=== PATIENT | male | born 1950 | race Caucasian/White ===

== ENCOUNTER 2021-06-05 07:00 | Inpatient (IN) ==
[~2021-06-05 07:00] MED LIST: DEXTROSE 10% 250 ML BAG IV PRN
[2021-06-05] MEDS: INSULIN REGULAR 100 UNIT/ML SUBCUT SCH ×4 (08:00→22:28)
[2021-06-05] MEDS: CHLORHEXIDINE 0.12% ORAL RINSE 60 ML BOTTLE SWISH/SPIT SCH ×2 (09:00→21:45)
[2021-06-05 10:58] LABS: Basophils # 0.1 10*3/uL (0.0-0.2); Basophils % 0.7 % (0.0-0.8); Eosinophils # 0.3 10*3/uL (0.0-0.87); Eosinophils % 3.8 % (0.00-10.9); Hematocrit 45.5 VOL% (42.0-52.0); Hemoglobin 14.7 GM/DL (14.0-18.0); Immature Granulocytes % 0.7 %; Immature Granulocytes Absolute 0.06 #; Lymphocytes # 1.7 10*3/uL (1.4-4.0); Mean Corpuscular HGB Conc 32.3 GM/DL (32-36); Mean Corpuscular Volume 93.2 FL (87-102); Monocytes % 9.1 % (1.7-12.7); Neutrophils % 65.7 % (38.7-73.9); Platelet Count 167 T/CUMM (130-400); Red Blood Count 4.88 MC/CUMM (3.8-5.5); Red Cell Distribution Width 12.7 % (9.3-17.3); White Blood Count 8.4 T/CUMM (4-12)
[2021-06-05 11:32] LABS: Albumin 3.5 G/DL (3.4-5.0); Bilirubin,Total 0.6 MG/DL (0.20-1.00); Calcium 8.8 MG/DL (8.5-10.1); Osmolality,Calculated 284.7 MOS/KG (273-304); Potassium 4.4 MMOL/L (3.5-5.1); Total Protein 7.5 G/DL (6.4-8.2)
[2021-06-05] MEDS ORDERED: GLUCAGON 1 MG VIAL IM PRN (11:40)
[2021-06-05] MEDS ORDERED: NITROGLYCERIN SL 0.4 MG TABLET SL PRN (11:53)
[2021-06-05] MEDS ORDERED: MORPHINE 2 MG/1 ML SYRINGE IV PRN (11:53)
[2021-06-05] MEDS ORDERED: CLORAZEPATE 3.75 MG TABLET PO PRN (11:53)
[2021-06-05] MEDS ORDERED: LACTATED RINGERS 1,000 ML IV SCH (12:30)
[2021-06-05] MEDS: SODIUM CHLORIDE 0.9% 1,000 ML IV SCH (13:11)
[2021-06-05 13:50] LABS: Arterial Base Excess iSTAT 2 MMOL/L (-2.5-2.5); Arterial Bicarbonate iSTAT 26.5 MMOL/L (20-26); Arterial O2 Saturation iSTAT 98 % (95-100); Arterial PCO2 iSTAT 40 MM HG (35-48); Arterial PO2 iSTAT 101 MM HG (80-95); Arterial Total CO2 iSTAT 28 MMO/L (23-27); Arterial pH iSTAT 7.433 (7.35-7.45)
[2021-06-05] MEDS: CHLORHEXIDINE 4% SOLN 118 ML BOTTLE TOP SCH ×2 (15:40→21:55)
[2021-06-06] MEDS: CHLORHEXIDINE 4% SOLN 118 ML BOTTLE TOP SCH (04:01)
[2021-06-06] MEDS ORDERED: PAPAVERINE 60 MG/2 ML VIAL ONE (04:18)
[2021-06-06] MEDS ORDERED: VANCOMYCIN 500 MG VIAL ONE (04:19)
[2021-06-06] MEDS ORDERED: VANCOMYCIN 1,000 MG VIAL ONE (04:19)
[2021-06-06] MEDS ORDERED: CEFUROXIME INJ 1,500 MG in SODIUM CHLORIDE 0.9% 100 ML IV ONE (05:00)
[2021-06-06] MEDS ORDERED: FAMOTIDINE 20 MG TABLET PO ONE (05:30)
[2021-06-06] MEDS ORDERED: DIAZEPAM 5 MG TABLET PO ONE (05:30)
[2021-06-06] MEDS ORDERED: NITROGLYCERIN DRIP 50 MG/250 ML BOTTLE IV ONE (05:38)
[2021-06-06] MEDS ORDERED: PHENYLEPHRINE DRIP 20 MG/250 ML PREMIX IV ONE (05:38)
[2021-06-06] MEDS ORDERED: SODIUM CHLORIDE 0.9% 250 ML IV ONE (05:53)
[2021-06-06] MEDS ORDERED: MIDAZOLAM 10 MG/2 ML VIAL ONE ×3 (05:53)
[2021-06-06] MEDS ORDERED: CALCIUM CHLORIDE 1,000 MG/10 ML VIAL IV ONE (05:53)
[2021-06-06] MEDS ORDERED: ePHEDrine 50 MG/ML VIAL ONE (05:53)
[2021-06-06] MEDS ORDERED: VECURONIUM 10 MG VIAL IV ONE (05:53)
[2021-06-06] MEDS ORDERED: MINERAL OIL/PETROLATUM OPH OINT 3.5 GM TUBE ONE (05:53)
[2021-06-06] MEDS ORDERED: SEVOFLURANE 1 UNIT/15 MINUTE INH ONE (05:53)
[2021-06-06] MEDS ORDERED: AMINOCAPROIC ACID 5,000 MG/20 ML VIAL ONE (05:53)
[2021-06-06] MEDS ORDERED: HEPARIN/NACL 0.9% 2 UNITS/ML 1,000 UNIT/500 ML BAG IV ONE (05:53)
[2021-06-06] MEDS ORDERED: SUFentanil 250 MCG/5 ML AMP ONE (05:53)
[2021-06-06] MEDS ORDERED: ETOMIDATE 40 MG/20 ML VIAL IV ONE (05:53)
[2021-06-06] MEDS ORDERED: LACTATED RINGERS 1,000 ML IV ONE (05:53)
[2021-06-06] MEDS ORDERED: SODIUM CHLORIDE 0.9% 1,000 ML IV ONE (05:53)
[2021-06-06] MEDS ORDERED: LIDOCAINE 2% 5 ML VIAL ONE ×2 (05:56→10:33)
[2021-06-06 07:31] LABS: ABG Base Excess -0.2 MMOL/L (-2.5-2.5); ABG HCO3 24.3 MMOL/L (20-26); ABG Oxygen Saturation 99.7 % (95-100); ABG PCO2 45.3 MM HG (35-48); ABG PH 7.361 (7.35-7.45); ABG TCO2 22.3 MMOL/L (23-27); Glucose Heart Surgery 196 MG/DL (74-106); Hematocrit Heart Surgery 42.7 PERCENT (42-52); Hemoglobin Heart Surgery 13.9 G/DL (14.0-18.0); Ionized Calcium Arterial 1.19 MMOL/L (1.21-1.46); PCO2 Patient Temp Arterial 45.3 MMHG; PH Patient Temp Arterial 7.361; Patient Temperature 37 CELCIUS; Potassium Heart/CVR 4.5 MMOL/L (3.5-5.1); Sodium Heart/CVR 140 MMOL/L (135-145)
[2021-06-06 07:40] LABS: RBC,Urine 2 /HPF (0-4); Urine Appearance Clear (Clear); Urine Color Yellow (Yellow); Urine Specific Gravity 1.025 (1.001-1.035)
[2021-06-06 07:41] LABS: Bilirubin,Urine Negative (Negative); Blood, Urine Trace mg/dL (Negative); Glucose,Urine (UA) Negative (Negative); Ketones,Urine Negative (Negative); Nitrite,Urine Negative (Negative); Protein,Urine Negative (Negative); Urine Urobilinogen 0.2 eU/dL (<2.0)
[2021-06-06] MEDS ORDERED: PHENYLEPHRINE DRIP 40 MG/250 ML PREMIX IV ONE (07:59)
[2021-06-06] MEDS ORDERED: POTASSIUM CHLORIDE RIDER 20 MEQ/100 ML PREMIX IV ONE (07:59)
[2021-06-06] MEDS ORDERED: NITROPRUSSIDE 50 MG/2 ML VIAL ONE (07:59)
[2021-06-06 09:08] LABS: Hemoglobin Heart Surgery 10.9 G/DL (14.0-18.0); PCO2 Patient Temp Venous 40.8 MM HG; PH Patient Temp Venous 7.422; PO2 Patient Temp Venous 35.3 MM HG; VBG Base Excess 2.1 MEQ/L (0-4); VBG HCO3 25.9 MEQ/L (24-28); VBG Oxygen Saturation 77.2 %; VBG PCO2 47.2 MMHG (41-51); VBG PH 7.379; VBG PO2 43.4 MMHG (17-40); VBG Total CO2 25.2 MMOL/L
[2021-06-06 09:09] LABS: Hematocrit Heart Surgery 33.7 PERCENT (42-52); Potassium Heart/CVR 6.1 MMOL/L (3.5-5.1)
[2021-06-06] MEDS ORDERED: AMIODARONE INJ 450 MG in DEXTROSE 5% 241 ML IV SCH (09:30)
[2021-06-06 09:36] LABS: Hemoglobin Heart Surgery 12.3 G/DL (14.0-18.0); PCO2 Patient Temp Venous 36.4 MM HG; PH Patient Temp Venous 7.447; PO2 Patient Temp Venous 33.8 MM HG; VBG Base Excess 0.5 MEQ/L (0-4); VBG HCO3 25.3 MEQ/L (24-28); VBG Oxygen Saturation 78.6 %; VBG PCO2 41.5 MMHG (41-51); VBG PH 7.403; VBG PO2 41.8 MMHG (17-40); VBG Total CO2 26.6 MMOL/L
[2021-06-06 09:37] LABS: Potassium Heart/CVR 6.1 MMOL/L (3.5-5.1)
[2021-06-06] MEDS ORDERED: THROMBIN TOPICAL (RECOMBINANT) 5,000 UNIT VIAL TOP ONE (10:09)
[2021-06-06 10:28] LABS: ABG Base Excess -1.9 MMOL/L (-2.5-2.5); ABG Oxygen Saturation 98.5 % (95-100); ABG PH 7.378 (7.35-7.45); ABG PO2 161.1 MM HG (80-95); ABG TCO2 24.3 MMOL/L (23-27); Glucose Heart Surgery 297 MG/DL (74-106); Hemoglobin Heart Surgery 12.4 G/DL (14.0-18.0); Ionized Calcium Arterial 1.11 MMOL/L (1.21-1.46); PH Patient Temp Arterial 7.378; PO2 Patient Temp Arterial 161.1 MM HG; Patient Temperature 37 CELCIUS; Potassium Heart/CVR 4.8 MMOL/L (3.5-5.1); Sodium Heart/CVR 131 MMOL/L (135-145)
[2021-06-06] MEDS ORDERED: MANNITOL 100 GM/500 ML BAG IV ONE (10:33)
[2021-06-06] MEDS ORDERED: PROTAMINE SULFATE 250 MG/25 ML VIAL IV ONE (10:33)
[2021-06-06] MEDS ORDERED: DEXTROSE 5% KCL 20 MEQ 20 MEQ/1,000 ML BAG IV ONE (10:33)
[2021-06-06] MEDS ORDERED: methylPREDNISolone SOD SUC 1,000 MG/8 ML VIAL ONE (10:33)
[2021-06-06] MEDS ORDERED: MAGNESIUM SULFATE 5 GM/10 ML VIAL IV ONE (10:33)
[2021-06-06] MEDS ORDERED: ALBUMIN 25% 25 GM/100 ML VIAL IV ONE (10:33)
[2021-06-06] MEDS ORDERED: FUROSEMIDE 20 MG/2 ML VIAL ONE (10:34)
[2021-06-06] MEDS ORDERED: PROTAMINE SULFATE 50 MG/5 ML VIAL IV ONE (10:34)
[2021-06-06] MEDS ORDERED: HEPARIN 10,000 UNIT/10 ML VIAL ONE (10:34)
[2021-06-06] MEDS ORDERED: SODIUM BICARBONATE 50 MEQ/50 ML VIAL IV ONE (10:34)
[2021-06-06] MEDS ORDERED: AMIODARONE 450 MG/9 ML VIAL IV ONE (11:06)
[2021-06-06] MEDS: LACTATED RINGERS 1,000 ML IV PRN ×5 (11:40→20:11)
[2021-06-06] MEDS ORDERED: POTASSIUM CHLORIDE RIDER 10 MEQ/100 ML PREMIX IV PRN (12:01)
[2021-06-06] MEDS ORDERED: NITROPRUSSIDE 100 MG in DEXTROSE 5% 250 ML IV PRN (12:01)
[2021-06-06] MEDS ORDERED: ACETAMINOPHEN 650 MG SUPP RECTAL PRN (12:01)
[2021-06-06] MEDS ORDERED: SODIUM CHLORIDE 0.45% 1,000 ML IV SCH (12:01)
[2021-06-06] MEDS ORDERED: MIDAZOLAM 10 MG/2 ML VIAL IV PRN (12:01)
[2021-06-06] MEDS ORDERED: ONDANSETRON 4 MG/2 ML VIAL IV PRN (12:01)
[2021-06-06] MEDS ORDERED: MAGNESIUM SULF RIDER 4 GM/100 ML PREMIX IV PRN (12:01)
[2021-06-06] MEDS ORDERED: MIDAZOLAM 2 MG/2 ML VIAL IV PRN (12:01)
[2021-06-06] MEDS ORDERED: INSULIN REGULAR 100 UNIT/ML IV PRN (12:01)
[2021-06-06] MEDS ORDERED: CALCIUM CHLORIDE 1,000 MG/10 ML SYRINGE IV PRN (12:01)
[2021-06-06] MEDS ORDERED: INSULIN REGULAR 100 UNIT/ML IV ONE (12:01)
[2021-06-06] MEDS ORDERED: INSULIN REGULAR DRIP 100 ML IV SCH (12:01)
[2021-06-06] MEDS ORDERED: MAGNESIUM SULF RIDER 2 GM/50 ML PREMIX IV PRN (12:01)
[2021-06-06] MEDS ORDERED: PHENYLEPHRINE DRIP 40 MG/250 ML PREMIX IV PRN (12:01)
[2021-06-06] MEDS ORDERED: LACTATED RINGERS 250 ML IV PRN (12:01)
[2021-06-06] MEDS ORDERED: VECURONIUM 10 MG VIAL IV PRN ×2 (12:01)
[2021-06-06] MEDS ORDERED: DEXTROSE 10% 250 ML BAG IV PRN ×2 (12:01)
[2021-06-06 12:18] LABS: ABG Base Excess -1.5 MMOL/L (-2.5-2.5); ABG HCO3 23.2 MMOL/L (20-26); ABG Oxygen Saturation 98.6 % (95-100); ABG PH 7.318 (7.35-7.45); ABG TCO2 22.5 MMOL/L (23-27); Glucose Heart Surgery 243 MG/DL (74-106); Potassium Heart/CVR 3.9 MMOL/L (3.5-5.1)
[2021-06-06] MEDS: SODIUM CHLORIDE 0.9% 1,000 ML IV SCH (12:36)
[2021-06-06] MEDS: SODIUM CHLORIDE 0.45% 1,000 ML IV SCH (12:37)
[2021-06-06] MEDS: POTASSIUM CHLORIDE RIDER 20 MEQ/100 ML PREMIX IV PRN ×5 (12:38→22:17)
[2021-06-06 12:39] LABS: Albumin 2.9 G/DL (3.4-5.0); Bilirubin,Total 0.8 MG/DL (0.20-1.00); Calcium 8.2 MG/DL (8.5-10.1); Osmolality,Calculated 289.4 MOS/KG (273-304); Potassium 3.4 MMOL/L (3.5-5.1); Total Protein 5.8 G/DL (6.4-8.2)
[2021-06-06 12:44] LABS: CKMB % 4.6 %
[2021-06-06 12:46] LABS: Basophils % 0.3 % (0.0-0.8); Eosinophils # 0.1 10*3/uL (0.0-0.87); Eosinophils % 0.8 % (0.00-10.9); Hematocrit 37.8 VOL% (42.0-52.0); Hemoglobin 12.1 GM/DL (14.0-18.0); Immature Granulocytes % 1.1 %; Lymphocytes # 0.9 10*3/uL (1.4-4.0); Lymphocytes % 9.2 % (21.2-54.2); Mean Corpuscular Volume 94.7 FL (87-102); Mean Platelet Volume 10.3 FL (9.6-12.0); Monocytes % 7.1 % (1.7-12.7); Neutrophils % 81.5 % (38.7-73.9); Platelet Count 132 T/CUMM (130-400); Red Blood Count 3.99 MC/CUMM (3.8-5.5); Red Cell Distribution Width 12.8 % (9.3-17.3); White Blood Count 9.5 T/CUMM (4-12)
[2021-06-06 12:51] LABS: High Sensitive Troponin I* 1353.1 ng/L (0-78)
[2021-06-06 12:53] LABS: INR 1.1; PT Patient Result 12.6 SECS (10.5-12.0); Partial Thromboplastin Time 28.4 SECS (23.8-32.1)
[2021-06-06 13:25] LABS: ABG HCO3 23.6 MMOL/L (20-26); ABG Oxygen Saturation 98.2 % (95-100); ABG PH 7.356 (7.35-7.45); ABG TCO2 21.9 MMOL/L (23-27); Glucose Heart Surgery 225 MG/DL (74-106); Hemoglobin Heart Surgery 12.4 G/DL (14.0-18.0); Potassium Heart/CVR 3.9 MMOL/L (3.5-5.1)
[2021-06-06 14:57] LABS: ABG Base Excess 0.4 MMOL/L (-2.5-2.5); ABG HCO3 24.8 MMOL/L (20-26); ABG PCO2 44.8 MM HG (35-48); ABG PH 7.372 (7.35-7.45); ABG TCO2 23.1 MMOL/L (23-27); Glucose Heart Surgery 183 MG/DL (74-106); Hematocrit Heart Surgery 36.9 PERCENT (42-52); Potassium Heart/CVR 4.3 MMOL/L (3.5-5.1)
[2021-06-06] MEDS: AMIODARONE INJ 450 MG in DEXTROSE 5% 241 ML IV SCH (15:35)
[2021-06-06] MEDS: ALBUMIN 5% 12.5 GM/250 ML VIAL IV PRN ×2 (16:17→16:32)
[2021-06-06 16:58] LABS: ABG Base Excess -0.5 MMOL/L (-2.5-2.5); ABG Oxygen Saturation 98.6 % (95-100); ABG PCO2 42.5 MM HG (35-48); ABG PH 7.374 (7.35-7.45); Glucose Heart Surgery 177 MG/DL (74-106); Hematocrit Heart Surgery 36.9 PERCENT (42-52); Potassium Heart/CVR 4.2 MMOL/L (3.5-5.1)
[2021-06-06 18:19] LABS: ABG Base Excess -1.9 MMOL/L (-2.5-2.5); ABG HCO3 22.8 MMOL/L (20-26); ABG Oxygen Saturation 97.9 % (95-100); ABG PCO2 48.9 MM HG (35-48); ABG PH 7.313 (7.35-7.45); ABG TCO2 22.2 MMOL/L (23-27); Glucose Heart Surgery 175 MG/DL (74-106); Hematocrit Heart Surgery 37.2 PERCENT (42-52); Hemoglobin Heart Surgery 12.1 G/DL (14.0-18.0); Potassium Heart/CVR 3.8 MMOL/L (3.5-5.1)
[2021-06-06 20:00] LABS: ABG HCO3 21.9 MMOL/L (20-26); ABG Oxygen Saturation 97.9 % (95-100); ABG PCO2 46.8 MM HG (35-48); ABG TCO2 21.2 MMOL/L (23-27); Glucose Heart Surgery 160 MG/DL (74-106); Hemoglobin Heart Surgery 11.7 G/DL (14.0-18.0); Potassium Heart/CVR 3.4 MMOL/L (3.5-5.1)
[2021-06-06] MEDS: CEFUROXIME INJ 1,500 MG in SODIUM CHLORIDE 0.9% 100 ML IV SCH (20:00)
[2021-06-06] MEDS: CHLORHEXIDINE 0.12% ORAL RINSE 60 ML BOTTLE SWISH/SPIT SCH (20:14)
[2021-06-06 20:26] LABS: CKMB % 3.6 %
[2021-06-06 20:30] LABS: High Sensitive Troponin I* 1837.1 ng/L (0-78)
[2021-06-06] MEDS: MORPHINE 10 MG/1 ML VIAL IV PRN (21:26)
[2021-06-06 22:13] LABS: ABG Base Excess -2.3 MMOL/L (-2.5-2.5); ABG HCO3 22.5 MMOL/L (20-26); ABG PCO2 45.6 MM HG (35-48); ABG PH 7.327 (7.35-7.45); ABG TCO2 21.5 MMOL/L (23-27); Glucose Heart Surgery 152 MG/DL (74-106); Hematocrit Heart Surgery 35.3 PERCENT (42-52); Hemoglobin Heart Surgery 11.4 G/DL (14.0-18.0); Potassium Heart/CVR 4.1 MMOL/L (3.5-5.1)
[2021-06-07 04:24] LABS: ABG Base Excess -0.7 MMOL/L (-2.5-2.5); ABG HCO3 23.8 MMOL/L (20-26); ABG Oxygen Saturation 96.7 % (95-100); ABG PCO2 47.5 MM HG (35-48); ABG PH 7.338 (7.35-7.45); ABG PO2 88.4 MM HG (80-95); ABG TCO2 23.1 MMOL/L (23-27); Glucose Heart Surgery 134 MG/DL (74-106); Hematocrit Heart Surgery 33.7 PERCENT (42-52); Hemoglobin Heart Surgery 10.9 G/DL (14.0-18.0)
[2021-06-07] MEDS: POTASSIUM CHLORIDE RIDER 20 MEQ/100 ML PREMIX IV PRN (04:28)
[2021-06-07 04:31] LABS: Basophils % 0.1 % (0.0-0.8); Hematocrit 33.8 VOL% (42.0-52.0); Immature Granulocytes % 0.8 %; Immature Granulocytes Absolute 0.14 #; Lymphocytes # 0.7 10*3/uL (1.4-4.0); Lymphocytes % 4.1 % (21.2-54.2); Mean Corpuscular HGB Conc 32.5 GM/DL (32-36); Mean Corpuscular Volume 95.5 FL (87-102); Mean Platelet Volume 10.5 FL (9.6-12.0); Monocytes % 5.1 % (1.7-12.7); Neutrophils % 89.9 % (38.7-73.9); Platelet Count 138 T/CUMM (130-400); Red Blood Count 3.54 MC/CUMM (3.8-5.5); Red Cell Distribution Width 13.1 % (9.3-17.3); White Blood Count 16.9 T/CUMM (4-12)
[2021-06-07 04:48] LABS: Albumin 3.4 G/DL (3.4-5.0); Bilirubin,Direct 0.11 MG/DL (0.0-0.20); Bilirubin,Total 0.6 MG/DL (0.20-1.00); CKMB % 3.9 %; Calcium 8.2 MG/DL (8.5-10.1); High Sensitive Troponin I* 1883.1 ng/L (0-78); Osmolality,Calculated 285.3 MOS/KG (273-304); Potassium 4.1 MMOL/L (3.5-5.1); Total Protein 6.1 G/DL (6.4-8.2)
[2021-06-07 04:50] LABS: Band Neutrophils 5 % (0-10); Hypochromia Slight; Lymphocytes 5 % (20-55); Microcytosis Slight; Platelet Estimate Adequate; Segmented Neutrophils 87 % (50-85); Total Cells Counted 100
[2021-06-07] MEDS: MORPHINE 10 MG/1 ML VIAL IV PRN (05:32)
[2021-06-07] MEDS ORDERED: KETOROLAC 30 MG/1 ML VIAL IV ONE (06:09)
[2021-06-07] MEDS: CEFUROXIME INJ 1,500 MG in SODIUM CHLORIDE 0.9% 100 ML IV SCH (08:57)
[2021-06-07] MEDS ORDERED: ACETAMINOPHEN 325 MG TABLET PO PRN ×2 (09:37→14:24)
[2021-06-07] MEDS: AMIODARONE INJ 450 MG in DEXTROSE 5% 241 ML IV SCH (09:46)
[2021-06-07] MEDS: INSULIN REGULAR 100 UNIT/ML SUBCUT SCH ×5 (09:48→20:07)
[2021-06-07] MEDS: CHLORHEXIDINE 0.12% ORAL RINSE 60 ML BOTTLE SWISH/SPIT SCH ×3 (10:08→20:10)
[2021-06-07] MEDS: AMIODARONE 200 MG TABLET PO SCH ×2 (10:09→20:07)
[2021-06-07] MEDS: ASCORBIC ACID 500 MG TABLET PO SCH ×2 (10:10→20:07)
[2021-06-07] MEDS: ROSUVASTATIN 20 MG TABLET PO SCH (10:10)
[2021-06-07] MEDS ORDERED: oxyCODONE/ACETAMINOPHEN 5-325 MG TABLET PO PRN (10:11)
[2021-06-07] MEDS: SODIUM CHLORIDE 0.45% 1,000 ML IV SCH (11:42)
[2021-06-07 12:44] LABS: CKMB % 3.4 %; High Sensitive Troponin I* 1444.5 ng/L (0-78)
[2021-06-07] MEDS ORDERED: SODIUM CHLOR 0.45% KCL 20 MEQ 20 MEQ/1,000 ML BAG IV SCH (14:24)
[2021-06-07] MEDS ORDERED: ONDANSETRON 4 MG/2 ML VIAL IV PRN (14:24)
[2021-06-07] MEDS ORDERED: MAGNESIUM HYDROXIDE SUSP 30 ML UDCUP PO PRN (14:24)
[2021-06-07] MEDS ORDERED: MORPHINE 2 MG/1 ML SYRINGE IV PRN (14:24)
[2021-06-07] MEDS ORDERED: MAGNESIUM SULF RIDER 4 GM/100 ML PREMIX IV PRN (14:24)
[2021-06-07] MEDS ORDERED: ZALEPLON 5 MG CAPSULE PO PRN (14:24)
[2021-06-07] MEDS ORDERED: GLUCAGON 1 MG VIAL IM PRN ×2 (14:24)
[2021-06-07] MEDS ORDERED: MAGNESIUM SULF RIDER 2 GM/50 ML PREMIX IV PRN (14:24)
[2021-06-07] MEDS ORDERED: POTASSIUM CHLORIDE 20 MEQ TABLET PO PRN (14:24)
[2021-06-07] MEDS ORDERED: ALUMINUM/MAGNES/SIMETH MAX STR 30 ML UDCUP PO PRN (14:24)
[2021-06-07] MEDS ORDERED: DEXTROSE 10% 250 ML BAG IV PRN ×2 (14:40→14:42)
[2021-06-07] MEDS: KETOROLAC 30 MG/1 ML VIAL IV SCH ×2 (15:31→20:08)
[2021-06-07] MEDS: metFORMIN 500 MG TABLET PO SCH (20:07)
[2021-06-07] MEDS: OLMESARTAN 5 MG TABLET PO SCH (20:07)
[2021-06-07] MEDS: carvediloL 3.125 MG TABLET PO SCH (20:07)
[2021-06-08] MEDS: INSULIN REGULAR 100 UNIT/ML SUBCUT SCH ×6 (00:06→21:33)
[2021-06-08] MEDS: KETOROLAC 30 MG/1 ML VIAL IV SCH ×4 (02:06→21:28)
[2021-06-08 04:30] LABS: Albumin 3.1 G/DL (3.4-5.0); Bilirubin,Direct 0.14 MG/DL (0.0-0.20); Bilirubin,Indirect 0.3 MG/DL (0.0-1.0); Bilirubin,Total 0.4 MG/DL (0.20-1.00); CKMB % 1.5 %; Calcium 8.3 MG/DL (8.5-10.1); Osmolality,Calculated 284.8 MOS/KG (273-304); Total Protein 6.1 G/DL (6.4-8.2)
[2021-06-08 04:31] LABS: High Sensitive Troponin I* 832.3 ng/L (0-78)
[2021-06-08] MEDS ORDERED: FUROSEMIDE 40 MG/4 ML VIAL IV ONE (06:00)
[2021-06-08] MEDS ORDERED: AMIODARONE INJ 100 MG in DEXTROSE 5% 100 ML IV ONE (06:32)
[2021-06-08] MEDS ORDERED: METOPROLOL TARTRATE 25 MG TABLET PO SCH (06:33)
[2021-06-08] MEDS: FERROUS SULFATE 325 MG TABLET PO SCH (08:30)
[2021-06-08] MEDS ORDERED: DILTIAZEM CD 120 MG CAPSULE PO SCH (09:00)
[2021-06-08] MEDS ORDERED: ASPIRIN EC 325 MG TABLET PO SCH (09:00)
[2021-06-08] MEDS: OLMESARTAN 5 MG TABLET PO SCH (09:07)
[2021-06-08] MEDS: ASPIRIN EC 81 MG TABLET PO SCH (09:08)
[2021-06-08] MEDS: metFORMIN 500 MG TABLET PO SCH ×2 (09:08→21:26)
[2021-06-08] MEDS: ROSUVASTATIN 20 MG TABLET PO SCH (09:08)
[2021-06-08] MEDS: ASCORBIC ACID 500 MG TABLET PO SCH ×2 (09:08→21:27)
[2021-06-08] MEDS: AMIODARONE 200 MG TABLET PO SCH ×2 (09:09→21:33)
[2021-06-08] MEDS: carvediloL 3.125 MG TABLET PO SCH ×2 (09:09→21:26)
[2021-06-08] MEDS: PANTOPRAZOLE 40 MG TABLET PO SCH (09:09)
[2021-06-08] MEDS: DOCUSATE SODIUM 100 MG CAPSULE PO SCH (09:09)
[2021-06-08] MEDS: APIXABAN 5 MG TABLET PO SCH ×2 (09:11→21:27)
[2021-06-08] MEDS: CHLORHEXIDINE 0.12% ORAL RINSE 60 ML BOTTLE SWISH/SPIT SCH ×2 (09:20→21:27)
[2021-06-08] MEDS ORDERED: METOPROLOL SUCCINATE XL 100 MG TABLET PO ONE (10:26)
[2021-06-08] MEDS ORDERED: METOPROLOL SUCCINATE XL 25 MG TABLET PO ONE (10:47)
[2021-06-08] MEDS ORDERED: MEPERIDINE 50 MG/1 ML VIAL ONE (16:05)
[2021-06-08] MEDS ORDERED: MIDAZOLAM 2 MG/2 ML VIAL ONE ×2 (16:05→16:07)
[2021-06-08] MEDS ORDERED: MIDAZOLAM 2 MG/2 ML VIAL IV ONE ×3 (16:08→16:16)
[2021-06-08] MEDS ORDERED: MEPERIDINE 50 MG/1 ML VIAL IV ONE (16:10)
[2021-06-08] MEDS ORDERED: diphenhydrAMINE 50 MG/1 ML VIAL ONE (16:11)
[2021-06-08] MEDS ORDERED: flumazeniL 0.5 MG/5 ML VIAL IV ONE (16:14)
[2021-06-08] MEDS ORDERED: diphenhydrAMINE 50 MG/1 ML VIAL IV ONE (16:14)
[2021-06-08] MEDS ORDERED: SODIUM CHLORIDE 0.9% 500 ML IV SCH (16:30)
[2021-06-09] MEDS: INSULIN REGULAR 100 UNIT/ML SUBCUT SCH ×6 (04:00→20:34)
[2021-06-09] MEDS: KETOROLAC 30 MG/1 ML VIAL IV SCH ×4 (04:00→20:34)
[2021-06-09 04:18] LABS: Alanine Aminotransferase 39 U/L (16-61); Albumin 2.8 G/DL (3.4-5.0); Alkaline Phosphatase 42 U/L (45-117); Aspartate Amino Transferase 21 U/L (0-37); Bilirubin,Indirect 0.3 MG/DL (0.0-1.0); Blood Urea Nitrogen 38 MG/DL (7-18); Calcium 8.1 MG/DL (8.5-10.1); Carbon Dioxide 31 MMOL/L (21-32); Estimated Glom Filtration Rate 87 ML/MIN; Glucose 104 MG/DL (74-106); Osmolality,Calculated 281.8 MOS/KG (273-304); Potassium 4.3 MMOL/L (3.5-5.1); Sodium 137 MMOL/L (136-145); Total Protein 5.8 G/DL (6.4-8.2)
[2021-06-09 08:32] LABS: Basophils % 0.1 % (0.0-0.8); Eosinophils % 0.2 % (0.00-10.9); Hematocrit 31.3 VOL% (42.0-52.0); Hemoglobin 9.8 GM/DL (14.0-18.0); Immature Granulocytes % 1.7 %; Immature Granulocytes Absolute 0.26 #; Lymphocytes # 2.2 10*3/uL (1.4-4.0); Lymphocytes % 13.9 % (21.2-54.2); Mean Corpuscular HGB Conc 31.3 GM/DL (32-36); Mean Platelet Volume 11.7 FL (9.6-12.0); Monocytes % 10.1 % (1.7-12.7); Platelet Count 138 T/CUMM (130-400); Red Blood Count 3.26 MC/CUMM (3.8-5.5); White Blood Count 15.5 T/CUMM (4-12)
[2021-06-09] MEDS: DOCUSATE SODIUM 100 MG CAPSULE PO SCH (08:36)
[2021-06-09] MEDS: APIXABAN 5 MG TABLET PO SCH ×2 (08:36→20:33)
[2021-06-09] MEDS: ASPIRIN EC 81 MG TABLET PO SCH (08:36)
[2021-06-09] MEDS: carvediloL 3.125 MG TABLET PO SCH (08:36)
[2021-06-09] MEDS: PANTOPRAZOLE 40 MG TABLET PO SCH (08:36)
[2021-06-09] MEDS: ROSUVASTATIN 20 MG TABLET PO SCH (08:36)
[2021-06-09] MEDS: metFORMIN 500 MG TABLET PO SCH ×2 (08:37→20:33)
[2021-06-09] MEDS: AMIODARONE 200 MG TABLET PO SCH ×2 (08:37→20:33)
[2021-06-09] MEDS: ASCORBIC ACID 500 MG TABLET PO SCH ×2 (08:37→20:33)
[2021-06-09] MEDS: CHLORHEXIDINE 0.12% ORAL RINSE 60 ML BOTTLE SWISH/SPIT SCH ×2 (08:38→20:34)
[2021-06-09] MEDS: FERROUS SULFATE 325 MG TABLET PO SCH (08:44)
[2021-06-09] MEDS ORDERED: OLMESARTAN 5 MG TABLET PO SCH (09:00)
[2021-06-09 10:04] LABS: Lymphocytes 21 % (20-55); Segmented Neutrophils 73 % (50-85); Total Cells Counted 100
[2021-06-09 10:05] LABS: Platelet Estimate Adequate; Polychromasia Slight
[2021-06-09] MEDS ORDERED: METOPROLOL SUCCINATE XL 50 MG TABLET PO ONE (10:29)
[2021-06-09] MEDS ORDERED: DILTIAZEM 30 MG TABLET PO SCH (12:00)
[2021-06-10] MEDS: KETOROLAC 30 MG/1 ML VIAL IV SCH ×2 (01:50→08:20)
[2021-06-10 05:16] LABS: Basophils % 0.1 % (0.0-0.8); Eosinophils # 0.2 10*3/uL (0.0-0.87); Eosinophils % 1.8 % (0.00-10.9); Hematocrit 29.9 VOL% (42.0-52.0); Hemoglobin 9.7 GM/DL (14.0-18.0); Immature Granulocytes % 1.4 %; Immature Granulocytes Absolute 0.14 #; Lymphocytes # 1.6 10*3/uL (1.4-4.0); Lymphocytes % 15.2 % (21.2-54.2); Mean Corpuscular HGB Conc 32.4 GM/DL (32-36); Mean Corpuscular Volume 96.5 FL (87-102); Mean Platelet Volume 11.3 FL (9.6-12.0); Monocytes % 9.5 % (1.7-12.7); Platelet Count 136 T/CUMM (130-400); Red Cell Distribution Width 13.5 % (9.3-17.3); White Blood Count 10.3 T/CUMM (4-12)
[2021-06-10 05:34] LABS: Osmolality,Calculated 284.5 MOS/KG (273-304); Potassium 4.5 MMOL/L (3.5-5.1)
[2021-06-10] MEDS: ASPIRIN EC 81 MG TABLET PO SCH (08:18)
[2021-06-10] MEDS: METOPROLOL SUCCINATE XL 50 MG TABLET PO SCH (08:18)
[2021-06-10] MEDS: ROSUVASTATIN 20 MG TABLET PO SCH (08:18)
[2021-06-10] MEDS: AMIODARONE 200 MG TABLET PO SCH ×2 (08:18→20:17)
[2021-06-10] MEDS: metFORMIN 500 MG TABLET PO SCH ×2 (08:18→20:17)
[2021-06-10] MEDS: FERROUS SULFATE 325 MG TABLET PO SCH (08:19)
[2021-06-10] MEDS: PANTOPRAZOLE 40 MG TABLET PO SCH (08:19)
[2021-06-10] MEDS: DOCUSATE SODIUM 100 MG CAPSULE PO SCH (08:19)
[2021-06-10] MEDS: APIXABAN 5 MG TABLET PO SCH ×2 (08:19→20:17)
[2021-06-10] MEDS: oxyCODONE/ACETAMINOPHEN 5-325 MG TABLET PO PRN ×2 (08:19→20:18)
[2021-06-10] MEDS: ASCORBIC ACID 500 MG TABLET PO SCH ×2 (08:19→20:17)
[2021-06-10] MEDS: CHLORHEXIDINE 0.12% ORAL RINSE 60 ML BOTTLE SWISH/SPIT SCH ×2 (08:19→20:19)
[2021-06-10] MEDS ORDERED: KETOROLAC 30 MG/1 ML VIAL IV ONE (09:08)
[2021-06-10] MEDS: INSULIN REGULAR 100 UNIT/ML SUBCUT SCH ×4 (09:25→20:19)
[2021-06-10] MEDS ORDERED: SODIUM CHLORIDE 0.45% 1,000 ML IV SCH (09:30)
[2021-06-11 05:08] LABS: Basophils % 0.3 % (0.0-0.8); Eosinophils # 0.6 10*3/uL (0.0-0.87); Hematocrit 30.7 VOL% (42.0-52.0); Hemoglobin 9.9 GM/DL (14.0-18.0); Immature Granulocytes % 2.4 %; Immature Granulocytes Absolute 0.23 #; Lymphocytes # 1.5 10*3/uL (1.4-4.0); Lymphocytes % 15.3 % (21.2-54.2); Mean Corpuscular HGB Conc 32.2 GM/DL (32-36); Mean Corpuscular Volume 94.8 FL (87-102); Mean Platelet Volume 10.6 FL (9.6-12.0); Monocytes % 8.5 % (1.7-12.7); Neutrophils % 67.5 % (38.7-73.9); Platelet Count 160 T/CUMM (130-400); Red Blood Count 3.24 MC/CUMM (3.8-5.5); Red Cell Distribution Width 13.4 % (9.3-17.3); White Blood Count 9.6 T/CUMM (4-12)
[2021-06-11 05:43] LABS: Alanine Aminotransferase 32 U/L (16-61); Albumin 2.5 G/DL (3.4-5.0); Alkaline Phosphatase 45 U/L (45-117); Aspartate Amino Transferase 18 U/L (0-37); Bilirubin,Indirect 0.4 MG/DL (0.0-1.0); Blood Urea Nitrogen 25 MG/DL (7-18); Calcium 8.2 MG/DL (8.5-10.1); Carbon Dioxide 28 MMOL/L (21-32); Estimated Glom Filtration Rate 88 ML/MIN; Glucose 109 MG/DL (74-106); Osmolality,Calculated 281.5 MOS/KG (273-304); Potassium 4.5 MMOL/L (3.5-5.1); Sodium 139 MMOL/L (136-145); Total Protein 5.9 G/DL (6.4-8.2)
[2021-06-11] MEDS: INSULIN REGULAR 100 UNIT/ML SUBCUT SCH ×2 (08:33→12:14)
[2021-06-11] MEDS: ASPIRIN EC 81 MG TABLET PO SCH (10:03)
[2021-06-11] MEDS: DOCUSATE SODIUM 100 MG CAPSULE PO SCH (10:04)
[2021-06-11] MEDS: AMIODARONE 200 MG TABLET PO SCH (10:04)
[2021-06-11] MEDS: APIXABAN 5 MG TABLET PO SCH (10:05)
[2021-06-11] MEDS: ROSUVASTATIN 20 MG TABLET PO SCH (10:05)
[2021-06-11] MEDS: FERROUS SULFATE 325 MG TABLET PO SCH (10:06)
[2021-06-11] MEDS: metFORMIN 500 MG TABLET PO SCH (10:06)
[2021-06-11] MEDS: PANTOPRAZOLE 40 MG TABLET PO SCH (10:07)
[2021-06-11] MEDS: CHLORHEXIDINE 0.12% ORAL RINSE 60 ML BOTTLE SWISH/SPIT SCH (10:07)
[2021-06-11] MEDS: ASCORBIC ACID 500 MG TABLET PO SCH (10:08)
[2021-06-11] MEDS: METOPROLOL SUCCINATE XL 50 MG TABLET PO SCH (10:08)
[2021-06-11 12:28] VITALS: BP 109/72
== END 2021-06-11 14:46 | disposition home health service (06) | DRG 236 ==
LOC: N.5E 09:04 → N.CVR 06-06 11:10 → N.ICU 06-07 09:14 → N.TELES 06-09 19:03